=== PATIENT | female | born 1985 | race Caucasian/White ===

== ENCOUNTER 2024-04-14 20:32 | Emergency (ER) | payer BC ==
[2024-04-14] MEDS ORDERED: SODIUM CHLORIDE 0.9% 1,000 ML IV ONE (20:45)
[2024-04-14 20:58] LABS: BILIRUBIN Negative (Negative); BLOOD Negative (Negative); CLARITY Turbid (Clear); COLOR Dark Yellow (Yellow); GLUCOSE Negative (Negative); KETONE Trace (Negative); LEUKO ESTERASE 1+ (Negative); NITRITE Negative (Negative); SPECIFIC GRAVITY >= 1.030 (1.001-1.030)
[2024-04-14 21:05] LABS: BACTERIA 1+; EPITHELIAL CELLS 21-30; MUCOUS 1+; RBC 0-2 rbc/hpf (0-2)
[2024-04-14 21:06] LABS: BASO % 0.3 % (0.0-1.0); EOS # 0.3 10*3/uL (0.0-0.4); EOS % 1.6 % (1.0-4.0); HEMATOCRIT 46.6 % (37.0-47.0); LYMPH # 2.8 10*3/uL (1.3-4.4); LYMPH % 17.7 % (27.0-41.0); MEAN CELL VOLUME 92.8 fl (81.0-99.0); MEAN CORPUSCULAR HGB 32.1 pg (27.0-31.0); MEAN CORPUSCULAR HGB CONC 34.5 g/dl (33.0-37.0); MEAN PLATELET VOLUME 8.9 fl (9.6-12.3); MONO # 1.1 10*3/uL (0.1-1.0); MONO % 6.6 % (3.0-9.0); NEUT # 11.7 10*3/uL (2.3-7.9); NEUT % 73.5 % (47.0-73.0); PLATELET COUNT AUTOMATED 331 10*3/uL (130-400); RED BLOOD COUNT 5.02 10*6/uL (4.10-5.10); RED CELL DISTRI WIDTH 11.9 % (0-14.5)
[2024-04-14] MEDS ORDERED: IOHEXOL 300 MG/ML 100 ML VIAL IV ONE (21:20)
[2024-04-14 21:26] LABS: ALKALINE PHOSPHATASE 68 U/L (46-116); BUN 9 mg/dl (9-23); CHLORIDE 110 mmol/L (98-107); LIPASE 38 U/L (12-53); POTASSIUM 4.1 mmol/L (3.4-5.1); SGPT/ALT 33 U/L (5-49); TOTAL PROTEIN 7.2 gm/dL (6.0-8.0)
[2024-04-14] MEDS ORDERED: Ondansetron4 MG PO (22:48)
[2024-04-14] MEDS ORDERED: Ondansetron Hydrochloride 4 MG/2 ML VIAL IV ONE (22:50)
[2024-04-22] MEDS ORDERED: XANAX0.25 MG PO (05:18)
[2024-04-22] MEDS ORDERED: LEXAPRO20 MG PO (05:18)
[2024-04-22] MEDS ORDERED: Synthroid,Levo50 MCG PO (05:19)
[2024-04-22] MEDS ORDERED: WELLBUTRIN XL300 MG PO (05:19)
[2024-04-22] MEDS ORDERED: PREDNISONE20 M1 PO (05:19)
[2024-04-22] MEDS ORDERED: RITALIN LA20 MG PO (05:19)
[2024-04-23] MEDS ORDERED: NAPROXEN500 MG PO (10:52)
[2024-04-23] MEDS ORDERED: METHYLPHENIDATE5 M1 PO (10:52)
[2024-04-23] MEDS ORDERED: DOCUSATE SOD100 MG PO (10:52)
[2024-04-23] MEDS ORDERED: 'CLONIDINE0.1 MG PO (10:52)
[2024-04-23] MEDS ORDERED: CHOLESTYRAMINE L4 G1 PO (10:52)
[2024-04-23] MEDS ORDERED: CLONAZEPAM0.5 M2 PO (10:52)
[2024-04-23] MEDS ORDERED: METOCLOPRAMIDE H5 M1 PO (11:00)
== END 2024-04-14 22:56 | disposition home or self-care (01) ==
LOC: ED 20:32
PROVIDERS: Internal Medicine
DX: K52.9 Noninfective gastroenteritis and colitis, unspecified (principal); R11.2 Nausea with vomiting, unspecified; Z90.49 Acquired absence of other specified parts of digestive tract; Z87.891 Personal history of nicotine dependence